=== PATIENT | female | born 1935 | race Caucasian/White ===

== ENCOUNTER 2017-04-17 16:34 | Emergency (ER) | payer MEDICARE, BC, MEDICAID ==
[2017-04-17 18:06] LABS: HEMATOCRIT 35.8 % (37.0-47.0); HEMOGLOBIN 12.6 g/dl (12.0-16.0); MEAN CORPUSCULAR HEMOGLOBIN 32.8 pg (29.0-33.0); MEAN CORPUSCULAR HGB CONC 35.2 g/dl (32.0-37.0); MEAN CORPUSCULAR VOLUME 93.2 fl (82.0-101.0); MEAN PLATELET VOLUME 9.8 fl (7.4-10.4); PLATELET COUNT 342 10^3/UL (140-415); RED BLOOD COUNT 3.84 10^6/ul (4.20-5.40); RED CELL DISTRIBUTION WIDTH 13.3 % (11.5-14.5)
[2017-04-17 18:09] LABS: ADD MAN DIFF? YES
[2017-04-17 18:25] LABS: INR 1.01; PROTIME 13.4 Sec (11.9-14.9)
[2017-04-17 18:26] LABS: PARTIAL THROMBOPLASTIN TIME 32.5 Sec (25.0-35.0)
[2017-04-17 18:28] LABS: ANION GAP 14 (8-16); BLOOD UREA NITROGEN 17 mg/dl (7-20); CALCIUM 9.5 mg/dl (8.4-10.2); CARBON DIOXIDE 30 mmol/L (21-31); CHLORIDE 104 mmol/L (97-110); GLUCOSE 112 mg/dl (70-220); POTASSIUM 3.3 mmol/L (3.5-5.1); SODIUM 145 mmol/L (135-144)
[2017-04-17] MEDS: METHYLPREDNISOLONE 125 MG INJ IV (18:35)
[2017-04-17] MEDS: SOD CHLORIDE 0.9% 500 ML IV (18:36)
[2017-04-17] MEDS: IPRATROPIUM (NEB) 0.5 MG/2.5 ML AMP INH (18:38)
[2017-04-17] MEDS: ALBUTEROL 0.5% (NEB) 2.5 MG/0.5 ML AMP INH (18:38)
[2017-04-17 19:12] LABS: EOSINOPHILS % (M) 22 % (0-7); GIANT THROMBO% (M) 2 % (0-0); LYMPHOCYTES #M 2.1 10^3/ul (0.8-2.9); LYMPHOCYTES % (M) 31 % (15-51); MONOCYTE #M 0.4 10^3/ul (0.3-0.9); MONOCYTES % (M) 7 % (0-11); PLATELET ESTIMATE NORMAL; REACTIVE LYMPHOCYTES #M 0.3 10^3/ul (0.0-0.0); REACTIVE LYMPHOCYTES% (M) 5 % (0-0); SEGMENTED NEUTROPHILS (M) % 34 % (39-77); SMUDGE%M 4 % (0-0)
[2017-04-17 20:37] LABS: B-TYPE NATRIURETIC PEPTIDE 32 PG/ML (0-450); TROPONIN-I < 0.012 ng/ml (0.00-0.12)
== END 2017-04-17 21:33 | disposition home or self-care (01) ==
LOC: E/R 16:34
DX: J20.9 Acute bronchitis, unspecified (principal); E87.6 Hypokalemia; I10 Essential (primary) hypertension; J44.9 Chronic obstructive pulmonary disease, unspecified
CPT/HCPCS: 36415; 71045; 80048; 83880; 84484; 85025; 85610; 85730; 93005; 94644; 96374; 99285-25

== ENCOUNTER 2017-08-10 11:09 | Day surgery (SDC) | payer MEDICARE, BC ==
[2017-08-10] MEDS ORDERED: PROPOFOL 20 ML ×2 (13:17→18:43)
== END 2017-08-10 14:51 | disposition home or self-care (01) ==
LOC: GIL 11:09
DX: K29.50 Unspecified chronic gastritis without bleeding (principal); K44.9 Diaphragmatic hernia without obstruction or gangrene; K21.9 Gastro-esophageal reflux disease without esophagitis; E78.5 Hyperlipidemia, unspecified; E11.9 Type 2 diabetes mellitus without complications; I10 Essential (primary) hypertension
CPT/HCPCS: 43239; 88305; 88312